=== PATIENT | male | born 1980 | race Caucasian/White ===

== ENCOUNTER 2019-01-02 08:29 | Emergency (ER) | payer BC ==
[2019-01-02] MEDS ORDERED: Lidocaine 1% 20 ML MDV ONE (08:56)
[2019-01-02] MEDS ORDERED: Triple Antibiotic Oint 1 GM Packet ONE (09:03)
== END 2019-01-02 09:20 | disposition home or self-care (01) ==
LOC: MADERS 08:29
DX: S61.213A Laceration without foreign body of left middle finger without damage to nail, initial encounter (principal); F17.210 Nicotine dependence, cigarettes, uncomplicated; W26.8XXA Contact with other sharp object(s), not elsewhere classified, initial encounter
CPT/HCPCS: 12002; J2001